=== PATIENT | female | born 1940 ===

== ENCOUNTER 2021-09-01 19:54 | Emergency (ER) | payer OTHER ==
--- NOTE | 2021-09-01 20:23 | EDM.PDOC ---
ED HPI GENERAL MEDICAL PROBLEM - General Chief Complaint: Fever Stated Complaint: FEVER Time Seen by Provider: 09/01/21 20:00 Source of Information: Reports: Patient, Family, RN Notes Reviewed History Limitations: Reports: No Limitations - History of Present Illness INITIAL COMMENTS - FREE TEXT/NARRATIVE: This patient presents to the emergency department for evaluation of fever. She states she did not feel well yesterday and had some difficulty breathing. She states she has a history of asthma but has not required medication for a number of years. She was having difficulty breathing and doing some wheezing with a cough and used her son's albuterol inhaler which did seem to help. Today she states she has felt lethargic and just not herself, weak and slept a lot. She has continued to cough a little. This evening she was noted to have a fever of 102.6 at home. She denies chest pain but does have a little difficulty breathing and on occasion. She denies nausea or vomiting. She denies diarrhea. She denies dysuria, back pain, headache. She has had Covid vaccination and a booster; She did not get a flu shot this fall. Her appetite is decreased but she has been drinking fluids today. ED ROS GENERAL - Review of Systems Review Of Systems: Comprehensive ROS is negative, except as noted in HPI. ED EXAM, GENERAL - Physical Exam Exam: See Below Exam Limited By: No Limitations General Appearance: Alert, No Apparent Distress Eye Exam: Bilateral Eye: EOMI, Normal Inspection, PERRL Ears: Normal External Exam Nose: Normal Inspection Head: Atraumatic, Normocephalic Neck: Normal Inspection, Full Range of Motion. No: Lymphadenopathy (R), Lymphadenopathy (L) Respiratory/Chest: No Respiratory Distress, Lungs Clear, Normal Breath Sounds, No Accessory Muscle Use. No: Rales, Rhonchi, Wheezing Psychiatric: Normal Affect, Normal Mood Skin Exam: Warm, Dry, Intact Course - Orders/Labs/Meds Orders: Active Orders 24 hr Category Date Time Status Chest 1V Frontal [CR] Stat Exams 09/01/21 20:12 Ordered Labs: Laboratory Tests 09/01/21 Range/Units 20:11 SARS CoV-2 RNA Rapid SARA Negative - Re-Assessments/Exams Free Text/Narrative Re-Assessment/Exam: This patient presents to the emergency department for evaluation of fever. History and clinical findings are consistent with influenza a. She has nontoxic appearing, is breathing comfortably, and is saturating well on room air. Chest x-ray was not performed as her lungs are clear on exam and given her constellation and duration of symptoms, pneumonia is unlikely. Tamiflu is not indicated for her as she has no significant medical comorbidities. She was encouraged to rest, drink lots of fluids, and use acetaminophen or ibuprofen as needed for fever and discomfort. She should follow-up with primary care provider in 2 to 3 days if she is not better or return to the emergency department if she develops any shortness of breath, confusion, severe headache, any new or worsening symptoms. The patient was stable at the time of discharge. 09/01/21 20:51 Departure - Departure Time of Disposition: 21:00 Disposition: Admitted As Inpatient 68 Condition: Good Clinical Impression: Influenza A - Discharge Information *PRESCRIPTION DRUG MONITORING PROGRAM REVIEWED*: Not Applicable *COPY OF PRESCRIPTION DRUG MONITORING REPORT IN PATIENT ASHELY: Not Applicable Instructions: Influenza, Adult, [id number] Referrals: PCP,Unknown [Primary Care Provider] - Forms: ED Department Discharge - My Orders Last 24 Hours: My Active Orders 09/01/21 20:12 Chest 1V Frontal [CR] Stat - Assessment/Plan Last 24 Hours: My Active Orders 09/01/21 20:12 Chest 1V Frontal [CR] Stat
== END 2021-09-01 20:53 | disposition home or self-care (01) ==
LOC: LB.ED 19:54
DX: J10.1 Influenza due to other identified influenza virus with other respiratory manifestations (principal); Z20.822 Contact with and (suspected) exposure to COVID-19
CPT/HCPCS: 87804; 87804-59; 99284-25; U0002